=== PATIENT | male | born 1950 | race African-American/Black ===

== ENCOUNTER 2016-10-10 21:26 | Inpatient (IN) | payer OTHER ==
[~2016-10-10] VITALS: Ht 182.9 cm; Wt 100.2 kg
[2016-10-10] MEDS ORDERED: NOR10 PO (22:10)
[2016-10-10 22:53] LABS: PLATELET COUNT 231 x10^3mcL (130-400); RED CELL DISTRIBUTION WIDTH 14.3 % (11.5-14.5)
[2016-10-10 22:56] LABS: BASOPHIL % 0 % (0-2)
[2016-10-10 22:57] LABS: CALCIUM 8.7 mg/dL (8.5-10.1); CARBON DIOXIDE 22.9 mmol/L (21-32); CREATININE SERUM 1.9 mg/dL (0.7-1.3); POTASSIUM SERUM 3.7 mmol/L (3.5-5.1)
[2016-10-10 23:02] LABS: ALBUMIN 3.7 g/dL (3.4-5.0); BILIRUBIN TOTAL 0.42 mg/dL (0.20-1.00); TOTAL PROTEIN, SERUM 7.2 g/dL (6.4-8.2)
[2016-10-10 23:06] LABS: CK-MB 3.6 ng/mL (0-3.6)
[2016-10-11] VITALS (9 sets, daily range): BP systolic 116–148; BP diastolic 68–100; Ht 182.9 cm; Wt 100.2 kg
[2016-10-11 01:15] LABS: T3 TOTAL 0.88 ng/mL
[2016-10-11 01:21] LABS: MAGNESIUM 2.1 mg/dL (1.8-2.4); PHOSPHOROUS 3.2 mg/dL (2.5-4.9)
[2016-10-11 01:27] LABS: FREE T4 0.86 ng/dL (0.76-1.46); T4(THYROXINE) 5.6 ug/dL (4.7-13.3)
[2016-10-11 01:29] LABS: CHOLESTEROL/HDL RATIO 4.7
[2016-10-11 07:35] LABS: AMPHETAMINE QUAL UR NONE DETECTED (NEG <=1000)
[2016-10-11 07:36] LABS: microscopic required? YES; urine erythrocyte TRACE (NEGATIVE)
[2016-10-11] MEDS ORDERED: ATORVASTATIN CA40 M1 PO (16:08)
[2016-10-11] MEDS ORDERED: NIT0.4 SL (16:09)
[2016-10-11] MEDS ORDERED: METOPROLOL TART25 M1 PO (16:09)
[2016-10-11] MEDS ORDERED: TYL325 PO (16:10)
[2016-10-11] MEDS ORDERED: ECO81 PO (16:10)
[2016-10-11] MEDS ORDERED: COL100 PO (16:11)
[2016-10-11] MEDS ORDERED: ZES5 PO (16:24)
[2016-10-11] MEDS ORDERED: NOR10 PO (18:53)
== END 2016-10-11 23:08 | disposition short-term general hospital (02) | DRG 280 ==
LOC: ED 21:26 → DU 23:06
PROVIDERS: Emergency Medicine; ADMIT Family Medicine
DX: I21.4 Non-ST elevation (NSTEMI) myocardial infarction (principal); N17.0 Acute kidney failure with tubular necrosis; I24.9 Acute ischemic heart disease, unspecified; E78.5 Hyperlipidemia, unspecified; E11.65 Type 2 diabetes mellitus with hyperglycemia; I25.10 Atherosclerotic heart disease of native coronary artery without angina pectoris; I12.9 Hypertensive chronic kidney disease with stage 1 through stage 4 chronic kidney disease, or unspecified chronic kidney disease; N18.9 Chronic kidney disease, unspecified; E11.22 Type 2 diabetes mellitus with diabetic chronic kidney disease; G47.33 Obstructive sleep apnea (adult) (pediatric); Z68.30 Body mass index [BMI] 30.0-30.9, adult; Z87.891 Personal history of nicotine dependence; Z79.84 Long term (current) use of oral hypoglycemic drugs; Z88.5 Allergy status to narcotic agent; Z80.42 Family history of malignant neoplasm of prostate; Z80.8 Family history of malignant neoplasm of other organs or systems; Z90.89 Acquired absence of other organs
CPT/HCPCS: 82962; 83880; 84439; J1644; J2543; J7030; Q0092